=== PATIENT | male | born 1985 | race Caucasian/White ===

== ENCOUNTER 2017-04-03 00:49 | Emergency (ER) | payer SELFPAY | END 2017-04-03 02:00 | disposition home or self-care (01) | LOC: ER 00:49 | DX: M54.5 Low back pain (principal); L72.3 Sebaceous cyst; F31.9 Bipolar disorder, unspecified; F17.210 Nicotine dependence, cigarettes, uncomplicated; Z88.8 Allergy status to other drugs, medicaments and biological substances; Z88.1 Allergy status to other antibiotic agents ==

== ENCOUNTER 2017-05-11 18:50 | Emergency (ER) | payer SELFPAY | END 2017-05-11 20:18 | disposition home or self-care (01) | LOC: ER 18:50 | DX: S62.346A Nondisplaced fracture of base of fifth metacarpal bone, right hand, initial encounter for closed fracture (principal); F17.210 Nicotine dependence, cigarettes, uncomplicated; W22.01XA Walked into wall, initial encounter ==